=== PATIENT | male | born 1990 | race Caucasian/White ===

== ENCOUNTER 2017-09-17 06:57 | Emergency (ER) | payer OTHER ==
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
[2017-09-17] MEDS ORDERED: Famotidine 20 MG Tab PO ONE (07:59)
[2017-09-17] MEDS ORDERED: Dicyclomine 10 MG Cap PO ONE (07:59)
[2017-09-17] MEDS ORDERED: Sodium Chloride 0.9% 1,000 ML IV SCH (08:00)
--- NOTE | 2017-09-17 08:41 | CT ---
Head CT Technique: Multiple axial sections through the brain were obtained. Intravenous contrast was not utilized. Comparison: No previous intracranial imaging is available. Findings: Ventricles along with basal cisterns and sulci over the convexities are within normal limits for the patient's age. No abnormal parenchymal densities are seen. No evidence of intracranial hemorrhage. No midline shift or mass effect is seen. Bone window settings were reviewed which shows no acute calvarial abnormality. Visualized sinuses are clear. Impression: 1. No acute intracranial abnormality is identified on noncontrast head CT exam. Diagnostic code #1
--- NOTE | 2017-09-17 09:16 | CR ---
Abdomen: Supine view of the abdomen was obtained. Calcifications are seen within the pelvis compatible with phleboliths. Bowel gas pattern is normal. No discrete soft tissue abnormality is seen. Bony structures are unremarkable. Impression: 1. Nonspecific supine abdominal x-ray. Diagnostic code #2
== END 2017-09-17 09:36 | disposition home or self-care (01) ==
LOC: JD.ED 06:57 → EEVIPCON 06:57 → JD.ED 09:36
DX: H81.10 Benign paroxysmal vertigo, unspecified ear (principal); K59.01 Slow transit constipation; Z79.899 Other long term (current) drug therapy
CPT/HCPCS: 36415; 70450; 74000; 80053; 83690; 83735; 85025; 86140; 99285; A9270; 99283